=== PATIENT | female | born 1990 ===

== ENCOUNTER 2024-03-04 07:01 | Day surgery (SDC) | payer OTHER ==
[2024-02-19 12:10] VITALS: BP 100/74
[~2024-03-04] VITALS: Ht 162.6 cm; Wt 110.7 kg
[~2024-03-04 07:01] MED LIST: CONGENTIN PO; DEPAKOTE ER500 MG PO; INVEGA6 MG PO; PROLIXIN PO
[2024-03-04] MEDS ORDERED: CEFAZOLIN SODIUM 1,000 MG VIAL ONE (10:41)
[2024-03-04] MEDS ORDERED: POVIDONE-IODINE 118 ML BOTT TOP ONE ×2 (12:37→13:56)
[2024-03-04] MEDS ORDERED: METHYLERGONOVINE MALEATE 0.2 MG/ML AMPUL ONE ×2 (14:51→19:23)
[2024-03-04] MEDS ORDERED: CEFAZOLIN SODIUM 1,000 MG VIAL IV SCH (17:30)
[2024-03-04] MEDS ORDERED: METHYLERGONOVINE MALEATE 0.2 MG/ML AMPUL IM SCH (17:30)
[2024-03-04 22:24] VITALS: BP 120/78; O2SAT 100
== END 2024-03-04 21:15 | disposition home or self-care (01) ==
LOC: CIR.AMB 07:01
PROVIDERS: ATTEND Obstetrics & Gynecology
DX: D25.0 Submucous leiomyoma of uterus (principal); N84.0 Polyp of corpus uteri; N92.5 Other specified irregular menstruation; J45.909 Unspecified asthma, uncomplicated; E66.01 Morbid (severe) obesity due to excess calories